=== PATIENT | female | born 1990 | race Caucasian/White ===

== ENCOUNTER → 2019-06-01 | Outpatient (CLI) | payer BC, MEDICAID ==
[~2019-06-01] MED LIST: ACHYD1T PO; IBP800T PO; PEDI100T PO
--- NOTE | 2019-06-01 15:11 | Diagnostic Imaging Report ---
INDICATION: Palpable lump in the right breast. TECHNIQUE: Interrogation of the area of palpable abnormality in the right breast was performed. This corresponds to the 2 o'clock location 1 cm from the nipple. FINDINGS: There is a macrolobulated, circumscribed solid appearing nodule at this location measuring 2.9 x 1.9 x 2.1 cm. This does have smooth borders and does show some posterior acoustic enhancement. 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 No other abnormalities are seen. IMPRESSION: There is a lobulated, solid circumscribed nodule at the 2 o'clock location of the right breast 1 cm from the nipple. 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 Even so, a followup right breast ultrasound in 6 months is recommended to show stability. ACR BI-RADS Category 3: Probably benign findings. Result letter will be mailed to the patient. Note: At least 10% of breast cancer is not imaged by mammography. Dictated by: Dictated on workstation # [id number]
== END ==
LOC: RAD 12:16
PROVIDERS: ATTEND Obstetrics & Gynecology
DX: N63.12 Unspecified lump in the right breast, upper inner quadrant (principal)

== ENCOUNTER 2019-06-15 05:34 | Outpatient (CLI) | payer MEDICAID ==
[~2019-06-15] VITALS: Ht 165 cm; Wt 69.0 kg
[2019-06-17] MEDS ORDERED: HYDR-34 PO (13:15)
== END 2019-06-15 13:34 | disposition home or self-care (01) ==
LOC: PREOP 05:34
PROVIDERS: ATTEND Surgery
DX: Z01.818 Encounter for other preprocedural examination (principal)

== ENCOUNTER 2021-09-03 11:52 | Outpatient (CLI) | payer MEDICAID ==
[~2021-09-03] VITALS: Ht 167.7 cm; Wt 86.6 kg
[2021-09-03 11:50] VITALS: BP 130/81
[~2021-09-03 11:52] MED LIST changes: +HYDR-34 PO
[2021-09-03 12:09] LABS: BILIRUBIN,URINE NEGATIVE (NEGATIVE); CLARITY,URINE CLEAR; COLOR,URINE YELLOW; GLUCOSE, URINE (UA) TRACE (NEGATIVE); KETONES,URINE NEGATIVE (NEGATIVE); LEUKOCYTE ESTERASE ,URINE NEGATIVE (NEGATIVE); NITRITE,URINE NEGATIVE (NEGATIVE); PH,URINE 6.5 (5-9); PROTEIN,URINE NEGATIVE (NEGATIVE)
[2021-09-03 12:15] LABS: BACTERIA,URINE MODERATE /HPF; WBC,URINE 0-2 /HPF
[2021-09-03 13:30] VITALS: BP 120/74
[2021-09-03 14:02] LABS: BASOPHILS % (AUTO) 0 % (0-10); EOSINOPHILS # (AUTO) 0.2 10^3/uL (0.0-0.3); EOSINOPHILS % (AUTO) 2 % (0-10); HEMATOCRIT 34 % (35-52); HEMOGLOBIN 11.2 g/dL (11.5-16.0); LYMPHOCYTES # (AUTO) 1.6 10^3/uL (1.0-4.0); LYMPHOCYTES % (AUTO) 16 % (12-44); MEAN CORPUSCULAR HEMOGLOBIN 28 pg (25-34); MEAN CORPUSCULAR HGB CONC 33 g/dL (32-36); MEAN CORPUSCULAR VOLUME 86 fL (80-99); MEAN PLATELET VOLUME 10.4 fL (9.0-12.2); MONOCYTES # (AUTO) 0.7 10^3/uL (0.0-1.0); MONOCYTES % (AUTO) 7 % (0-12); NEUTROPHILS # (AUTO) 7.5 10^3/uL (1.8-7.8); NEUTROPHILS % (AUTO) 74 % (42-75); PLATELET COUNT 207 10^3/uL (130-400); WHITE BLOOD COUNT 10.2 10^3/uL (4.3-11.0)
[2021-09-03 14:05] LABS: URINE CREATININE FOR RATIO 33 MG/DL (30-125); URINE PROTEIN FOR RATIO ONLY < 6 MG/DL (6-12)
[2021-09-03 14:20] LABS: ALBUMIN 3.1 GM/DL (3.2-4.5); BILIRUBIN,TOTAL 0.4 MG/DL (0.1-1.0); CALCIUM 9.4 MG/DL (8.5-10.1); CREATININE SERUM 0.65 MG/DL (0.60-1.30); POTASSIUM 4.2 MMOL/L (3.6-5.0); TOTAL PROTEIN 6.5 GM/DL (6.4-8.2); URIC ACID 3.4 MG/DL (2.6-7.2)
[2021-09-03] MEDS ORDERED: PREN-142 PO (17:22)
--- NOTE | 2021-09-04 09:43 | Physician Query-Final Dx ---
HAYLEY,09/04/21 0943: Clinic Account Progress/Dx Physician Query: Please give diagnosis Please include # weeks gestation Date of Service Sep 03, 2021 at 11:52 THEO MCCONNELL DO 09/05/21 0706: Clinic Account Progress/Dx DIAGNOSIS: Diagnosis 36 week IUP IRregular contractions Lightheaded/ dizzyness HAYLEY,SepSep 04, 2021 09:43 THEO MCCONNELL DO Sep 05, 2021 07:06
== END 2021-09-03 17:33 | disposition home or self-care (01) ==
LOC: WSo 11:52 → LDRP 11:52 → WSo 17:33
PROVIDERS: ATTEND Obstetrics & Gynecology
DX: O13.3 Gestational [pregnancy-induced] hypertension without significant proteinuria, third trimester (principal); Z3A.00 Weeks of gestation of pregnancy not specified
CPT/HCPCS: 36415; 80053; 81000; 82570; 84156; 84550; 85025; 87088; 99213

== ENCOUNTER 2021-09-06 11:12 | Inpatient (IN) | payer MEDICAID ==
[~2021-09-06] VITALS: Ht 167.7 cm; Wt 87.0 kg
[2021-09-06] VITALS (38 sets, daily range): BP systolic 113–135; BP diastolic 60–86
[~2021-09-06 11:12] MED LIST changes: +PREN-142 PO
--- NOTE | 2021-09-06 11:47 | History & Physical-OB ---
OB - Chief Complaint & HPI Date/Time Date of Admission: Date of Admission: Sep 06, 2021 at 11:12 am Date seen by a Provider: Sep 06, 2021 Time Seen by a Provider: 10:30 Chief Complaint/History OB-Reason for Admission/Chief: Labor Hx : 2 Hx Para: 1 Expected Date of Delivery: Oct 01, 2021 Gestational Age in Weeks: 36 Gestational Age in Days: 3 Other reason for admission: Patient sent from office 4 cm dialated and obdulia q 3-4 min. Admission Nurse Assessment Rev: Yes History of Labs A pos Antibody neg RI RPR NR HBsAg NR HIV NR GC neg GBS neg Allergies and Home Medications Allergies Coded Allergies: No Known Drug Allergies (Unverified , 06/15/19) Patient Home Medication List Home Medication List Reviewed: Yes Vit No.124/Iron/FA ( Vitamin Tablet) 1 Each Tablet, 1 EACH PO DAILY, (Reported) Entered as Reported by: CHRISTOPHER VALLADARES on 09/03/21 1722 Discontinued Medications Hydrocodone Bit/Acetaminophen (Lortab 7.5 Mg Tablet) 1 Ea Tablet, 1 EACH PO Q4H PRN for PAIN-MODERATE Discontinued Reason: No Longer Taking Prescribed by: ROSIE CRAIG on 06/17/19 1315 OB - History Hx of Present Care: Yes Ultrasounds: Normal mid trimester US Obstetrical Complications: None Medical Complications: None Delivery History Hx Blood Disorders: No Adverse Rxn to Tranfusion: No (N/A) Patient Past Medical History n/a Social History/Family History 2nd Hand Smoke Exposure: No OB - Admission Exam Physical Exam HEENT: NCAT Heart: Rhythm Normal Lungs: Clear Abdomen: Gravid Extremities: Normal Reflexes: Normal Cervical Dilatation: 4cm Effacement: 75% Station: 0 Membranes: Intact Heart Rate: 130's Accelerations: Accelerations Present Decelerations: No Decelerations Short Term Variability: Present Fdc Variability: Average (6-25) Contractions on Admission: < 5 Minutes Apart Intensity: Moderate OB - Assessment/Plan/Diagnosis Assessment Assessment: active labor, labor Admission Dx 31 yo @ 36 weeks labor GBS neg Admission Status: Inpatient Order (span 2 midnights) Reason for Inpatient Admission: 36 week labor Plan Plan: Expectant Management THEO MCCONNELL DO Sep 06, 2021 11:47 am
[2021-09-06] MEDS: D5 LR IV SOLUTION 1,000 ML IV SCH ×2 (11:55→19:40)
[2021-09-06 12:15] LABS: BASOPHILS % (AUTO) 0 % (0-10); EOSINOPHILS # (AUTO) 0.1 10^3/uL (0.0-0.3); EOSINOPHILS % (AUTO) 1 % (0-10); HEMATOCRIT 34 % (35-52); LYMPHOCYTES # (AUTO) 1.6 10^3/uL (1.0-4.0); LYMPHOCYTES % (AUTO) 17 % (12-44); MEAN CORPUSCULAR HEMOGLOBIN 28 pg (25-34); MEAN CORPUSCULAR HGB CONC 33 g/dL (32-36); MEAN CORPUSCULAR VOLUME 87 fL (80-99); MEAN PLATELET VOLUME 10.7 fL (9.0-12.2); MONOCYTES # (AUTO) 0.8 10^3/uL (0.0-1.0); MONOCYTES % (AUTO) 8 % (0-12); NEUTROPHILS # (AUTO) 7.2 10^3/uL (1.8-7.8); NEUTROPHILS % (AUTO) 73 % (42-75); PLATELET COUNT 201 10^3/uL (130-400); WHITE BLOOD COUNT 9.8 10^3/uL (4.3-11.0)
[2021-09-06 12:16] LABS: BILIRUBIN,URINE NEGATIVE (NEGATIVE); CLARITY,URINE CLEAR; COLOR,URINE YELLOW; GLUCOSE, URINE (UA) NEGATIVE (NEGATIVE); KETONES,URINE NEGATIVE (NEGATIVE); LEUKOCYTE ESTERASE ,URINE TRACE (NEGATIVE); NITRITE,URINE NEGATIVE (NEGATIVE); PH,URINE 6.5 (5-9); PROTEIN,URINE NEGATIVE (NEGATIVE)
[2021-09-06 12:35] LABS: AMORPHOUS SEDIMENT,UR FEW AMOR URATES /LPF; BACTERIA,URINE MODERATE /HPF
[2021-09-06] MEDS: OXYTOCIN PRE-MIX DRIP 500 ML IV SCH ×4 (13:17→22:45)
[2021-09-06] MEDS ORDERED: CATHETER FLUSH 10 ML SYR IV SCH ×2 (14:00→22:00)
[2021-09-06] MEDS ORDERED: HYDROmorphone 2 MG/ML VIAL (DILAUDID) IVP ONE (18:45)
[2021-09-06] MEDS ORDERED: LIDOCAINE/EPI 2% 1:200,00 (XYLOCAINE) 10 ML VIAL ONE (19:32)
[2021-09-06] MEDS ORDERED: NALOXONE 0.4 MG/ML 1 ML (NARCAN) VIAL IV PRN (20:45)
[2021-09-06] MEDS ORDERED: WITCH HAZEL(TUCKS) 40 EA JAR TOP PRN (20:45)
[2021-09-06] MEDS ORDERED: BENZOCAINE/MENTHOL (DERMOPLAST) 56 ML CAN TP PRN (20:45)
[2021-09-06] MEDS ORDERED: MEASLES,MUMPS,RUBELLA 1 EA INJ SQ ONE (20:45)
[2021-09-06] MEDS ORDERED: HYDROcodone/APAP 5 MG/325 MG (LORTAB) TAB PO PRN (20:45)
[2021-09-06] MEDS ORDERED: DIBUCAINE 1% OINTMENT 30 GM TUBE TOP PRN (20:45)
[2021-09-06] MEDS ORDERED: TETANUS,DIPTH,PERTUSS P/F (BOOSTRIX) 0.5 ML VIAL IM ONE (20:45)
--- NOTE | 2021-09-06 20:52 | OB Labor & Delivery Record ---
L&D History Date of Service Date of Service: Sep 06, 2021 History Expected Date of Delivery: Oct 01, 2021 Gestational Age in Weeks: 36 Hx : 2 Hx Para: 1 Complications Events: Labor <37 wks, Routine care Operative Indications (Cesarea: N/A-Vaginal Delivery Intrapartal Events: None L&D Stage1 Stage One Onset of Labor - Date: Sep 06, 2021 Monitors and Tracing Monitor Mode: External Heart Rate: 135 Monitor Accelerations: Uniform Monitor Decelerations: Variable Station: 0 Intermediate Variability: Moderate (11-25) Short Term Variability: Present Presentation: Vertex Vital Signs VS - Last 72 Hours, by Label 09/06/21 09/06/21 09/06/21 09/06/21 11:40 12:30 13:00 13:15 Temp 37.1 Pulse 92 89 93 100 Resp 18 18 18 18 B/P (MAP) 127/86 (100) 119/77 (91) 119/74 (89) Pulse Ox 99 O2 Delivery Room Air Room Air Room Air Room Air 09/06/21 09/06/21 09/06/21 09/06/21 13:30 13:45 14:00 14:15 Pulse 88 96 90 99 Resp 18 18 18 18 B/P (MAP) 123/76 (92) 118/71 (87) 120/72 (88) 123/73 (90) O2 Delivery Room Air Room Air Room Air Room Air 09/06/21 09/06/21 09/06/21 09/06/21 14:30 14:45 15:00 15:15 Temp 36.6 Pulse 78 82 90 82 Resp 18 18 18 18 B/P (MAP) 123/74 (90) 116/64 (81) 119/70 (86) 117/70 (86) O2 Delivery Room Air Room Air Room Air Room Air 09/06/21 09/06/21 09/06/21 09/06/21 15:30 15:45 16:00 16:15 Pulse 96 101 101 98 Resp 18 18 18 18 B/P (MAP) 127/64 (85) 113/61 (78) 113/61 (78) 117/76 (90) O2 Delivery Room Air Room Air Room Air Room Air 09/06/21 09/06/21 09/06/21 09/06/21 16:30 16:45 17:00 17:15 Pulse 99 110 100 84 Resp 18 18 18 18 B/P (MAP) 115/72 (86) 127/80 (96) 122/70 (87) 122/80 (94) O2 Delivery Room Air Room Air Room Air Room Air 09/06/21 09/06/21 09/06/21 09/06/21 17:30 17:45 18:00 18:15 Temp 36.4 Pulse 98 98 95 99 Resp 18 18 18 18 B/P (MAP) 122/77 (92) 122/77 (92) 123/71 (88) 123/71 (88) O2 Delivery Room Air Room Air Room Air Room Air 09/06/21 09/06/21 09/06/21 18:30 18:45 19:00 Pulse 89 86 95 Resp 18 18 18 B/P (MAP) 117/70 (86) 123/74 (90) 118/68 (85) O2 Delivery Room Air Room Air Room Air Rupture of Membranes Spontaneous Ruture of Membrane: No Amniotic Membrane Rupture Time: 1227 Amniotic Membrane Fluid Desc.: Clear Vaginal Bleeding Description: Normal Show Progress/Notes Patient seen in office, in active labor. She was admitted to labor utin where AROM was performed and she rapidly progressed to complete and + 2 station where she felt an urge to push. L&D Stage2 Stage Two Stage II Date: Sep 06, 2021 Monitors and Tracing Monitor Mode: External Heart Rate: 135 Monitor Accelerations: Uniform Monitor Decelerations: Variable Network Control Supervisor Variability: Average (6-10) Short Term Variability: Present Position: Right Occiput Anterior Presentation: Vertex Cord Descript/Complications Cord Vessel Description: 3 Vessels Delivery Type Infant Delivery Method: Spontaneous Vaginal Anterior Shoulder: Right Episiotomy/Perineal Laceration Laceraction(s)/Extensions: Yes Degree (describe repair) right labial laceration reparied using 3-0 rapide vicryl suture in usual fashion. Condition of Infant Delivery 1 minute Comment: 8 5 minute Comment: 9 Notes Live male weight 6 lbs Condition of Infant Condition of Infant: Living Exam: No Observed Abnormalities Resuscitation Resuscitation: N/A - Spontaneous Resp L&D Stage3 Stage Three Stage III Date: Sep 06, 2021 Pictocin Pitocin Administration mu/min: 12 Pitocin ml/hr: 12 Pitocin Administration Comment: pitocin increased Placenta Delivery Placenta Delivery: Spontaneous Delivery Summary Summary Estimated blood loss (mL): 350 Attending at delivery: Theo Mcconnell DO Condition of Delivery Examined: Cervix Examined, Uterus Explored Post Hemorrhage: Yes Condition of Mother stable Condition of Infant (s) stable THEO MCCONNELL DO Sep 06, 2021 20:51
--- NOTE | 2021-09-06 20:55 | Discharge Inst-Women's Service ---
Discharge Inst-Women's Serv Depart Medication/Instructions New, Converted or Re-Newed RX: Transmitted to Pharmacy Final Diagnosis PPD 2 NVD Problems Reviewed?: Yes Consults/Follow Up Additional Follow Up: Yes Orders/Referrals Dr. Mcconnell in 6 weeks Activity Activity: Activity as Tolerated Driving Instructions: No Driving for 1 Week NO SMOKING: NO SMOKING Nothing Inside Vagina: No Douching, No [place], No Tampons Diet Discharge Diet: No Restrictions Symptoms to Report to : Bleeding Excessive, Pain Increased, Fever Over 101 Degrees F, Vaginal Bleeding Increase, Questions/Concerns For Any Problems or Questions: Contact Your Physician THEO MCCONNELL DO Sep 06, 2021 20:55
[2021-09-06] MEDS ORDERED: DOCU100C37 PO (21:00)
[2021-09-06] MEDS ORDERED: ACHD5005 PO (21:00)
[2021-09-06] MEDS ORDERED: IBUP-844 PO (21:00)
[2021-09-06] MEDS ORDERED: BENZ78AE5 TP (21:00)
[2021-09-06] MEDS ORDERED: DIBU30OI TOP (21:00)
[2021-09-06] MEDS: DOCUSATE SODIUM 100 MG (COLACE) CAP PO SCH (23:58)
[2021-09-06] MEDS: IBUPROFEN 600 MG (MOTRIN) TAB PO SCH (23:58)
[2021-09-07 04:05] VITALS: BP 111/62
[2021-09-07 05:38] LABS: BASOPHILS % (AUTO) 0 % (0-10); EOSINOPHILS # (AUTO) 0.1 10^3/uL (0.0-0.3); EOSINOPHILS % (AUTO) 1 % (0-10); HEMATOCRIT 30 % (35-52); HEMOGLOBIN 9.5 g/dL (11.5-16.0); LYMPHOCYTES # (AUTO) 1.9 10^3/uL (1.0-4.0); LYMPHOCYTES % (AUTO) 18 % (12-44); MEAN CORPUSCULAR HEMOGLOBIN 28 pg (25-34); MEAN CORPUSCULAR HGB CONC 32 g/dL (32-36); MEAN CORPUSCULAR VOLUME 88 fL (80-99); MEAN PLATELET VOLUME 10.7 fL (9.0-12.2); MONOCYTES % (AUTO) 9 % (0-12); NEUTROPHILS # (AUTO) 7.6 10^3/uL (1.8-7.8); NEUTROPHILS % (AUTO) 71 % (42-75); PLATELET COUNT 170 10^3/uL (130-400); WHITE BLOOD COUNT 10.6 10^3/uL (4.3-11.0)
[2021-09-07 08:22] VITALS: BP 121/72
[2021-09-07] MEDS: IBUPROFEN 600 MG (MOTRIN) TAB PO SCH ×3 (09:26→21:08)
[2021-09-07] MEDS: FERROUS SULF 325 MG (IRON) TAB PO SCH (09:26)
[2021-09-07] MEDS: PRENATAL VITAMIN 1 EA TAB PO SCH (09:26)
[2021-09-07] MEDS: DOCUSATE SODIUM 100 MG (COLACE) CAP PO SCH ×2 (09:26→21:08)
--- NOTE | 2021-09-07 10:45 | Postpartum Progress Note ---
Note Note Day # 1 s/p Subjective: Patient is without complaints. Ambulating, voiding. Tolerating a regular diet without nausea or vomiting. Normal lochia. Pain is well controlled with oral pain medications. Objective: 09/06/21 09/07/21 09/07/21 23:58 04:05 08:22 Temp 36.6 36.8 36.1 Pulse 88 108 103 Resp 18 18 18 B/P (MAP) 119/64 (82) 111/62 (78) 121/72 (88) Pulse Ox 98 98 97 O2 Delivery Room Air Room Air Room Air 09/07/21 00:00 Intake Total 1200 ml Balance 1200 ml Laboratory Tests Test 09/06/21 11:43 09/06/21 11:45 09/07/21 05:20 Range/Units White Blood Count 9.8 10.6 4.3-11.0 10^3/uL Red Blood Count 3.87 3.39 L 3.80-5.11 10^6/uL Hemoglobin 11.0 L 9.5 L 11.5-16.0 g/dL Hematocrit 34 L 30 L 35-52 % Mean Corpuscular Volume 87 88 80-99 fL Mean Corpuscular Hemoglobin 28 28 25-34 pg Mean Corpuscular Hemoglobin Concent 33 32 32-36 g/dL Red Cell Distribution Width 13.5 13.3 10.0-14.5 % Platelet Count 201 170 130-400 10^3/uL Mean Platelet Volume 10.7 10.7 9.0-12.2 fL Immature Granulocyte % (Auto) 1 1 % Neutrophils (%) (Auto) 73 71 42-75 % Lymphocytes (%) (Auto) 17 18 12-44 % Monocytes (%) (Auto) 8 9 0-12 % Eosinophils (%) (Auto) 1 1 0-10 % Basophils (%) (Auto) 0 0 0-10 % Neutrophils # (Auto) 7.2 7.6 1.8-7.8 10^3/uL Lymphocytes # (Auto) 1.6 1.9 1.0-4.0 10^3/uL Monocytes # (Auto) 0.8 1.0 0.0-1.0 10^3/uL Eosinophils # (Auto) 0.1 0.1 0.0-0.3 10^3/uL Basophils # (Auto) 0.0 0.0 0.0-0.1 10^3/uL Immature Granulocyte # (Auto) 0.1 0.1 0.0-0.1 10^3/uL Urine Color YELLOW Urine Clarity CLEAR Urine pH 6.5 5-9 Urine Specific [place] <=1.005 1.016-1.022 Urine Protein NEGATIVE NEGATIVE Urine Glucose (UA) NEGATIVE NEGATIVE Urine Ketones NEGATIVE NEGATIVE Urine Nitrite NEGATIVE NEGATIVE Urine Bilirubin NEGATIVE NEGATIVE Urine Urobilinogen 0.2 < = 1.0 MG/DL Urine Leukocyte Esterase TRACE H NEGATIVE Urine RBC (Auto) NEGATIVE NEGATIVE Urine RBC NONE /HPF Urine WBC 2-5 /HPF Urine Squamous Epithelial Cells 2-5 /HPF Urine Crystals PRESENT H /LPF Urine Amorphous Sediment FEW BEATRICE URATES H /LPF Urine Bacteria MODERATE H /HPF Urine Casts NONE /LPF Urine Mucus NEGATIVE /LPF Urine Culture Indicated YES Physical Exam: General - Alert and oriented, no apparent distress Abdomen - Soft, appropriately tender to palpation, non-distended, fundus firm at umbilicus Extremities - no edema, negative Justin's bilaterally Assessment: 1. post- day # 1, status post spontaneous vaginal delivery. Recovering well, hemodynamically stable Plan: Routine care. Encourage breast feeding. Encourage ambulation. Ferrous sulfate supplementation. Plan for discharge tomorrow Vitals - Labs Vital Signs - I&O Vital Signs Date Time Temp Pulse Resp B/P (MAP) Pulse Ox O2 Delivery O2 Flow Rate FiO2 09/07/21 08:22 36.1 103 18 121/72 (88) 97 Room Air 09/07/21 04:05 36.8 108 18 111/62 (78) 98 Room Air 09/06/21 23:58 36.6 88 18 119/64 (82) 98 Room Air 09/06/21 22:21 36.5 104 18 123/62 (82) Room Air 09/06/21 22:00 36.6 112 18 123/63 (83) Room Air 09/06/21 21:30 104 18 129/76 (93) Room Air 09/06/21 21:00 36.6 96 18 131/63 (85) Room Air 09/06/21 20:45 36.3 101 18 119/60 (79) Room Air 09/06/21 20:30 102 18 126/69 (88) Room Air 09/06/21 20:15 36.4 99 18 123/80 (94) Room Air 09/06/21 20:00 36.4 104 18 122/72 (89) Room Air 09/06/21 19:30 93 18 120/65 (83) Room Air 09/06/21 19:15 118 18 135/73 (93) Room Air 09/06/21 19:00 95 18 118/68 (85) Room Air 09/06/21 18:45 86 18 123/74 (90) Room Air 09/06/21 18:30 89 18 117/70 (86) Room Air 09/06/21 18:15 99 18 123/71 (88) Room Air 09/06/21 18:00 95 18 123/71 (88) Room Air 09/06/21 17:45 98 18 122/77 (92) Room Air 09/06/21 17:30 36.4 98 18 122/77 (92) Room Air 09/06/21 17:15 84 18 122/80 (94) Room Air 09/06/21 17:00 100 18 122/70 (87) Room Air 09/06/21 16:45 110 18 127/80 (96) Room Air 09/06/21 16:30 99 18 115/72 (86) Room Air 09/06/21 16:15 98 18 117/76 (90) Room Air 09/06/21 16:00 101 18 113/61 (78) Room Air 09/06/21 15:45 101 18 113/61 (78) Room Air 09/06/21 15:30 96 18 127/64 (85) Room Air 09/06/21 15:15 36.6 82 18 117/70 (86) Room Air 09/06/21 15:00 90 18 119/70 (86) Room Air 09/06/21 14:45 82 18 116/64 (81) Room Air 09/06/21 14:30 78 18 123/74 (90) Room Air 09/06/21 14:15 99 18 123/73 (90) Room Air 09/06/21 14:00 90 18 120/72 (88) Room Air 09/06/21 13:45 96 18 118/71 (87) Room Air 09/06/21 13:30 88 18 123/76 (92) Room Air 09/06/21 13:15 100 18 119/74 (89) Room Air 09/06/21 13:00 93 18 119/77 (91) Room Air 09/06/21 12:30 89 18 127/86 (100) Room Air 09/06/21 11:40 37.1 92 18 99 Room Air I & O 09/07/21 07:00 Intake Total 1200 ml Balance 1200 ml Labs Laboratory Tests 09/06/21 11:43: White Blood Count 9.8, Red Blood Count 3.87, Hemoglobin 11.0L, Hematocrit 34L, Mean Corpuscular Volume 87, Mean Corpuscular Hemoglobin 28, Mean Corpuscular Hemoglobin Concent 33, Red Cell Distribution Width 13.5, Platelet Count 201, Mean Platelet Volume 10.7, Immature Granulocyte % (Auto) 1, Neutrophils (%) (Auto) 73, Lymphocytes (%) (Auto) 17, Monocytes (%) (Auto) 8, Eosinophils (%) (Auto) 1, Basophils (%) (Auto) 0, Neutrophils # (Auto) 7.2, Lymphocytes # (Auto) 1.6, Monocytes # (Auto) 0.8, Eosinophils # (Auto) 0.1, Basophils # (Auto) 0.0, Immature Granulocyte # (Auto) 0.1 09/06/21 11:45: Urine Color YELLOW, Urine Clarity CLEAR, Urine pH 6.5, Urine Specific [place] <=1.005, Urine Protein NEGATIVE, Urine Glucose (UA) NEGATIVE, Urine Ketones NEG ATIVE, Urine Nitrite NEGATIVE, Urine Bilirubin NEGATIVE, Urine Urobilinogen 0.2, Urine Leukocyte Esterase TRACEH, Urine RBC (Auto) NEGATIVE, Urine RBC NONE, Urine WBC 2-5, Urine Squamous Epithelial Cells 2-5, Urine Crystals PRESENTH, Urine Amorphous Sediment FEW BEATRICE URATESH, Urine Bacteria MODERATEH, Urine Casts NONE, Urine Mucus NEGATIVE, Urine Culture Indicated YES 09/07/21 05:20: White Blood Count 10.6, Red Blood Count 3.39L, Hemoglobin 9.5L, Hematocrit 30L, Mean Corpuscular Volume 88, Mean Corpuscular Hemoglobin 28, Mean Corpuscular Hemoglobin Concent 32, Red Cell Distribution Width 13.3, Platelet Count 170, Mean Platelet Volume 10.7, Immature Granulocyte % (Auto) 1, Neutrophils (%) (Auto) 71, Lymphocytes (%) (Auto) 18, Monocytes (%) (Auto) 9, Eosinophils (%) (Auto) 1, Basophils (%) (Auto) 0, Neutrophils # (Auto) 7.6, Lymphocytes # (Auto) 1.9, Monocytes # (Auto) 1.0, Eosinophils # (Auto) 0.1, Basophils # (Auto) 0.0, Immature Granulocyte # (Auto) 0.1 Microbiology 09/06/21 Urine Culture - Final, Complete NO GROWTH ROSELYN YUNG DO Sep 07, 2021 10:45
[2021-09-07 11:31] VITALS: BP 113/63
[2021-09-07 15:26] VITALS: BP 117/59
[2021-09-07 19:29] VITALS: BP 118/64
[2021-09-08 03:10] VITALS: BP 104/61
[2021-09-08 08:52] VITALS: BP 106/67
[2021-09-08] MEDS: FERROUS SULF 325 MG (IRON) TAB PO SCH (08:53)
[2021-09-08] MEDS: DOCUSATE SODIUM 100 MG (COLACE) CAP PO SCH (08:53)
[2021-09-08] MEDS: PRENATAL VITAMIN 1 EA TAB PO SCH (08:53)
[2021-09-08] MEDS: IBUPROFEN 600 MG (MOTRIN) TAB PO SCH ×2 (08:53→15:30)
--- NOTE | 2021-09-08 11:40 | Postpartum Progress Note ---
Note Note Day # 2 Subjective: Patient is without complaints. Ambulating, voiding. Tolerating a regular diet without nausea or vomiting. Normal lochia. Pain is well controlled with oral pain medications. Objective: Physical Exam: General - Alert and oriented, no apparent distress Abdomen - Soft, appropriately tender to palpation, non-distended, fundus firm at umbilicus Extremities - no edema, negative Justin's bilaterally Assessment: PPD 2 NVD Plan: Routine care. Encourage breast feeding. Encourage ambulation. Ferrous sulfate supplementation. Plan for discharge today Vitals - Labs Vital Signs - I&O Vital Signs Date Time Temp Pulse Resp B/P (MAP) Pulse Ox O2 Delivery O2 Flow Rate FiO2 09/08/21 08:52 36.7 97 18 106/67 (80) 98 Room Air 09/08/21 03:10 36.6 81 16 104/61 (75) 96 Room Air 09/07/21 19:29 37.0 89 16 118/64 (82) 98 Room Air 09/07/21 15:26 36.8 95 18 117/59 (78) 97 Room Air Labs Microbiology 09/06/21 Urine Culture - Final, Complete NO GROWTH THEO MCCONNELL DO Sep 08, 2021 11:40
[2021-09-08 15:27] VITALS: BP 116/64
== END 2021-09-08 16:00 | disposition home or self-care (01) | DRG 807 ==
LOC: LDRP 11:12
PROVIDERS: ADMIT Obstetrics & Gynecology; ATTEND Obstetrics & Gynecology
PROC: 10E0XZZ Delivery of Products of Conception, External Approach (ICD-10-PCS; principal; 2021-09-06)
PROC: 10907ZC Drainage of Amniotic Fluid, Therapeutic from Products of Conception, Via Natural or Artificial Opening (ICD-10-PCS; 2021-09-06)
PROC: 0UQMXZZ Repair Vulva, External Approach (ICD-10-PCS; 2021-09-06)
DX: O60.14X0 Preterm labor third trimester with preterm delivery third trimester, not applicable or unspecified (principal); Z37.0 Single live birth; Z3A.36 36 weeks gestation of pregnancy; O70.0 First degree perineal laceration during delivery
CPT/HCPCS: 36415; 81000; 85025; 86850; 86900; 86901; 87088; 99212